=== PATIENT | male | born 1960 | race Caucasian/White ===

== ENCOUNTER → 2017-06-20 | Outpatient (CLI) | payer OTHER ==
[~2017-06-20] MED LIST: TAMIFLU 75MG CA75 MG PO
--- NOTE | 2017-06-20 17:59 | RADIOLOGY REPORT PS360 ---
KNEE-3 VIEWS-RT HISTORY: RIGHT KNEE PAIN ORDERING PHYSICIAN: Jerrell Gibbs MD PATIENT AGE: 57 years COMPARISON: None FINDINGS: No fracture or dislocation. No lytic or blastic change. Normal mineralization. There is slight decrease in the joint space medially and at the patellofemoral joint with osteophyte formation along the medial compartment consistent with mild osteoarthritic change. 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
--- NOTE | 2017-06-20 22:15 | RADIOLOGY REPORT PS360 ---
HIP LT 2-3V W/PELVIS IF PERFOR HISTORY: RIGHT KNEE PAIN, LEFT HIP PAIN ORDERING PHYSICIAN: Jerrell Gibbs MD PATIENT AGE: 57 years COMPARISON: None FINDINGS: No fracture or dislocation is evident. There is decrease in joint space medially with minimal osteophyte formation consistent with mild osteoarthritis. No lytic or blastic change. IMPRESSION: Mild osteoarthritis of the left hip otherwise negative
== END ==
LOC: RAD 17:18
DX: R10.30 Lower abdominal pain, unspecified (principal); M25.561 Pain in right knee

== ENCOUNTER → 2017-06-21 | Outpatient (CLI) | payer OTHER ==
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
== END ==
LOC: RAD 09:54
DX: M25.561 Pain in right knee (principal)